=== PATIENT | male | born 1960 | race Caucasian/White ===

== ENCOUNTER 2019-10-01 10:03 | Outpatient (CLI) | payer OTHER ==
[~2019-10-01] VITALS: Ht 188 cm; Wt 122.5 kg
[2019-10-01] MEDS ORDERED: albuterol 2.5 MG/3 ML nebule NEB ONE (10:50)
== END 2019-10-01 23:59 | disposition home or self-care (01) ==
LOC: RT 10:03
PROVIDERS: ATTEND Orthopaedic Surgery
DX: J40 Bronchitis, not specified as acute or chronic (principal)
CPT/HCPCS: 71046; 94060; 94729; 94760